=== PATIENT | male | born 1955 | race Caucasian/White ===

== ENCOUNTER 2018-10-06 08:56 | Day surgery (SDC) | payer MEDICARE, OTHER ==
[~2018-10-06 08:56] MED LIST: LACTATED RINGERS 1,000 ML IV.SOLN IV ONE; LIDOCAINE HCL 2% PF 100MG/5ML VIAL IJ ONE; PROPOFOL 200 MG/20 ML VIAL IV ONE
--- NOTE | 2018-10-09 10:22 | GI Report ---
REFERRING PHYSICIAN: Dr. Yeager. PROCEDURE PERFORMED: Colonoscopy with polypectomy. SURGEON: Bruno Álvarez M.D., [place] INDICATION FOR PROCEDURE: This 63-year-old man is referred for screening. He has never had previous colonoscopy. 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 PROCEDURE MEDICATION: Propofol, as per Anesthesia. DESCRIPTION OF PROCEDURE: The Olympus video colonoscope was advanced through the rectum. In the sigmoid at 25 cm there was a 3-4 mm polyp removed with a cold snare. In the transverse colon at 65 cm there is another 3-4 mm flat polyp removed with a cold snare. The colonoscope was advanced all the way to the cecum. The appendiceal orifice and ileocecal valve are normal. On slow withdrawal, the ascending colon, transverse colon: No additional lesions noted. One lesion described in the transverse colon was removed with a cold snare. Descending colon: No obvious intraluminal lesions noted. The polyp in the sigmoid as described above was removed with a cold snare. On retroflexion, the rectum was normal. The patient tolerated the procedure well. FINDINGS: Two colon polyps, one sigmoid, one transverse colon. RECOMMENDATIONS: 1. High fiber diet. 2. Follow up colonoscopy in 5 years pending the pathology of the polyp. BRUNO ÁLVAREZ M.D., F.A.CRenitaP. Roxy Job#: [id number] Cc: Dr. Yeager. MTDChanelle
== END 2018-10-06 12:12 | disposition home or self-care (01) ==
LOC: OPSURG 08:56
PROVIDERS: ATTEND Internal Medicine Gastroenterology
DX: Z12.11 Encounter for screening for malignant neoplasm of colon (principal); Z13.9 Encounter for screening, unspecified; D12.3 Benign neoplasm of transverse colon; K63.5 Polyp of colon; Z85.831 Personal history of malignant neoplasm of soft tissue
CPT/HCPCS: 45385; 88305; J2001; J2704; J7120; S1016